=== PATIENT | female | born 1975 | race Caucasian/White ===

== ENCOUNTER → 2017-04-01 | Outpatient (CLI) | payer OTHER | LOC: CIMAGING 14:49 | DX: Z12.31 Encounter for screening mammogram for malignant neoplasm of breast (principal) | CPT/HCPCS: G0202 ==

== ENCOUNTER → 2017-04-08 | Outpatient (CLI) | payer OTHER | LOC: BMCIMAGING 10:20 | DX: Z12.39 Encounter for other screening for malignant neoplasm of breast (principal); N63 Unspecified lump in breast | CPT/HCPCS: G0206 ==

== ENCOUNTER → 2018-06-14 | Outpatient (CLI) | payer OTHER | LOC: BRMIMAGING 09:22 | PROVIDERS: ATTEND Obstetrics & Gynecology Gynecology | DX: N63.23 Unspecified lump in the left breast, lower outer quadrant (principal); R92.0 Mammographic microcalcification found on diagnostic imaging of breast | CPT/HCPCS: 76641-PO ==

== ENCOUNTER → 2019-01-26 | Outpatient (CLI) | payer OTHER | LOC: CIMAGING 12:51 | PROVIDERS: ATTEND Physician Assistant Medical | DX: R92.0 Mammographic microcalcification found on diagnostic imaging of breast (principal) ==